=== PATIENT | female | born 1980 | race Caucasian/White ===

== ENCOUNTER 2020-01-07 06:39 | Day surgery (SDC) | payer BC, OTHER ==
[~2020-01-07 06:39] MED LIST: Buffered Lidocaine 1% SYRIN* 1 ML/SYRINGE INTRADERM ONE; Lactated Ringers 1000 ML Bag* 1,000 ML IV SCH
[2020-01-07] MEDS ORDERED: Buffered Lidocaine 1% SYRIN* 1 ML/SYRINGE INTRADERM ONE (06:55)
[2020-01-07] MEDS ORDERED: Benzocaine/Butamben/Tetracain (CETACAINE - SINGLE USE) 5 gm TOPICAL ONE (08:24)
[2020-01-07] MEDS ORDERED: Propofol* 10 MG/ML 20 ML BTL ONE (09:12)
[2020-01-07] MEDS ORDERED: Naloxone* 0.4 MG/ML 1 ML VIAL IV PRN (09:50)
[2020-01-07 10:09] VITALS: BP 105/59
--- NOTE | 2020-01-07 12:42 | PRO ---
CC: Rodrigo Moore MD * DATE OF PROCEDURE: 01/07/20 [facility] REFERRING PROVIDER: Rodrigo Moore MD PROCEDURE: EGD with biopsy. INDICATIONS: Chronic reflux as well as solid food and pill dysphagia. On omeprazole 20 mg daily without any breakthrough reflux symptoms. Genetic testing permissive for celiac disease. MEDICATIONS: Given by Anesthesia. DESCRIPTION OF PROCEDURE: Full disclosure of risks was reviewed with the patient as detailed on the consent form. The patient was placed in the left lateral decubitus position and monitored with continuous pulse oximetry, capnography, interval blood pressure monitoring, and direct observation. A bite -block was placed between the patient's teeth. An adult gastroscope was then inserted into the patient's mouth and advanced down the esophagus, into the stomach, and into the distal duodenum. Findings and interventions are described below. FINDINGS: Esophagus was a normal tubular structure without rings or strictures. No significant linear furrowing. GE junction was minimally irregular. No evidence of Osorio's esophagus. No esophagitis. GE junction occurred at 33 cm. Scope was then advanced into a 2 cm hiatal hernia with the top of the gastric folds occurring at 35 cm. The scope was then advanced into the remainder of the stomach. Stomach was examined in the forward and retroflex views. There was mild streaky antral erythema. Biopsy obtained from the antrum for CLOtest. Retroflexion in the stomach revealed laxity around the GE junction consistent with Hill grade 3 valve. Scope was then advanced into the duodenum to at least the third portion. Duodenal mucosa was normal in appearance. Biopsies were obtained from the duodenum to rule out celiac disease. Scope was then withdrawn back into the esophagus where biopsies were obtained from the mid and distal esophagus. Scope was then withdrawn from the patient. The patient tolerated the procedure well and was recovered in the GI recovery area. IMPRESSION: 1. Complete upper endoscopy to the distal duodenum. 2. No explanation for patient's dysphagia seen on this exam. 3. Mild gastric antral erythema. FOLLOWUP: 1. Continue omeprazole 20 mg daily. 2. Await pathology. Thank you very much for this referral. [id number]/[facility] #: [id number] STAN
== END 2020-01-07 10:10 | disposition home or self-care (01) ==
LOC: OR 06:39
PROVIDERS: ATTEND Internal Medicine Gastroenterology
DX: R13.10 Dysphagia, unspecified (principal); K21.9 Gastro-esophageal reflux disease without esophagitis; R11.0 Nausea; G47.33 Obstructive sleep apnea (adult) (pediatric); I10 Essential (primary) hypertension; E78.5 Hyperlipidemia, unspecified; R73.03 Prediabetes; M79.7 Fibromyalgia; E66.01 Morbid (severe) obesity due to excess calories
CPT/HCPCS: 81025; 87077; 88305; J2704